=== PATIENT | female | born 1930 | race Two or more races ===

== ENCOUNTER → 2017-04-30 | Outpatient (CLI) | payer MEDICARE, OTHER ==
[2017-04-30 15:40] LABS: CALCIUM 8.8 mg/dL (8.5-10.1); CREATININE 0.9 mg/dL (0.6-1.0); POTASSIUM 4.5 mmol/L (3.5-5.1)
[2017-04-30 15:41] LABS: GFR 59.4
== END | disposition home or self-care (01) ==
LOC: SPEC 15:19
PROVIDERS: ATTEND Internal Medicine
DX: J96.00 Acute respiratory failure, unspecified whether with hypoxia or hypercapnia (principal)
CPT/HCPCS: 36415; 80048

== ENCOUNTER → 2017-06-21 | Outpatient (CLI) | payer MEDICARE, OTHER ==
[2017-06-21 13:22] LABS: BACTERIA,URINE MANY /HPF (0-FEW); BILIRUBIN,URINE NEG (NEG); CLARITY,URINE CLOUDY; COLOR,URINE YELLOW; GLUCOSE,URINE NEG (NEG); NITRITE,URINE POS (NEG); RBC,URINE 0 /HPF (0-2); SQUAMOUS EPITHELIAL CELL,UR OCC /LPF; UROBILINOGEN,URINE 0.2 mg/dL (0.2 mg/dL)
== END | disposition home or self-care (01) ==
LOC: SPEC 12:48
PROVIDERS: ATTEND Internal Medicine
DX: R50.9 Fever, unspecified (principal)
CPT/HCPCS: 81001; 87086

== ENCOUNTER → 2017-07-29 | Outpatient (CLI) | payer MEDICARE, OTHER ==
--- NOTE | 2017-07-29 12:37 | RAD ---
Exam performed: Renal sonogram. Indication: Renal cyst Date of Service: 07/29/17 . Comparison: None available Technique: Real-time grayscale imaging of the kidneys is performed and images are obtained. Findings: Both kidneys are normal in size and echogenicity. The right kidney measures 9.8 x 4.2 x 4.7 cm. There is a 4.0 x 2.7 x 4.5 cm cyst in the superior pole of the right kidney The left kidney measures 11.2 x 4.7 x 4.2 cm. There is a 1.4 x 1.2 x 1.1 cm cyst in the superior pole of the left kidney There is no hydronephrosis or perinephric fluid collection. The urinary bladder is well distended and appears normal. Impression: 1. Simple bilateral renal cysts, otherwise unremarkable renal sonogram.
== END | disposition home or self-care (01) ==
LOC: US 09:47
PROVIDERS: ATTEND Internal Medicine
DX: N28.1 Cyst of kidney, acquired (principal); N28.89 Other specified disorders of kidney and ureter; N32.89 Other specified disorders of bladder
CPT/HCPCS: 76770

== ENCOUNTER → 2017-08-08 | Outpatient (CLI) | payer MEDICARE, OTHER | END | disposition home or self-care (01) | LOC: SPEC 16:00 | PROVIDERS: ATTEND Internal Medicine | DX: K21.9 Gastro-esophageal reflux disease without esophagitis (principal); K29.00 Acute gastritis without bleeding | CPT/HCPCS: 36415; 87338 ==